=== PATIENT | female | born 1970 | race Caucasian/White ===

== ENCOUNTER 2018-01-02 12:56 | Outpatient (RCR) | payer MEDICAID, SELFPAY | END 2018-01-03 23:59 | LOC: NS 12:56 | PROVIDERS: Family Provider Internal Medicine; PCP Internal Medicine; Visit Provider Nurse Practitioner Family | DX: E66.01 Morbid (severe) obesity due to excess calories (principal); Z68.43 Body mass index [BMI] 50.0-59.9, adult; Z71.3 Dietary counseling and surveillance | CPT/HCPCS: 97802 ==

== ENCOUNTER 2018-01-16 14:00 | Outpatient (RCR) | payer MEDICAID, SELFPAY | END 2018-02-03 23:59 | LOC: NS 14:00 | PROVIDERS: Family Provider Internal Medicine; PCP Internal Medicine; Visit Provider Nurse Practitioner Family | DX: E66.01 Morbid (severe) obesity due to excess calories (principal); Z68.43 Body mass index [BMI] 50.0-59.9, adult; Z71.3 Dietary counseling and surveillance | CPT/HCPCS: 97803 ==

== ENCOUNTER 2018-04-03 14:02 | Outpatient (RCR) | payer MEDICAID, SELFPAY | END 2018-04-05 23:59 | LOC: NS 14:02 | PROVIDERS: Family Provider Internal Medicine; PCP Internal Medicine; Visit Provider Nurse Practitioner Family | DX: E66.01 Morbid (severe) obesity due to excess calories (principal); Z68.43 Body mass index [BMI] 50.0-59.9, adult; Z71.3 Dietary counseling and surveillance | CPT/HCPCS: 97803 ==

== ENCOUNTER 2018-04-23 14:51 | Outpatient (RCR) | payer MEDICAID, SELFPAY | END 2018-05-05 23:59 | LOC: NS 14:51 | PROVIDERS: Family Provider Internal Medicine; PCP Internal Medicine; Visit Provider Nurse Practitioner Family | DX: E66.01 Morbid (severe) obesity due to excess calories (principal); Z68.43 Body mass index [BMI] 50.0-59.9, adult; Z71.3 Dietary counseling and surveillance | CPT/HCPCS: 97803 ==

== ENCOUNTER 2018-05-07 14:05 | Outpatient (RCR) | payer MEDICAID, SELFPAY | END 2018-05-07 23:59 | LOC: NS 14:05 | PROVIDERS: Family Provider Internal Medicine; PCP Internal Medicine; Visit Provider Nurse Practitioner Family | DX: E66.01 Morbid (severe) obesity due to excess calories (principal); Z68.43 Body mass index [BMI] 50.0-59.9, adult; Z71.3 Dietary counseling and surveillance | CPT/HCPCS: 97803 ==

== ENCOUNTER → 2018-05-08 09:33 | Outpatient (CLI) | payer MEDICAID, SELFPAY ==
--- NOTE | 2018-05-08 09:34 | US_ITS ---
STUDY: ULTRASOUND BREAST - RIGHT REASON FOR EXAM: Female, 47 years old. Palpable lump in the right breast. TECHNIQUE: Axial and longitudinal images of the RIGHT breast were performed with a high resolution ultrasound transducer. COMPARISON: None. FINDINGS: RIGHT Breast: The upper medial aspect of the right breast was examined by ultrasound. There is a 1.5 cm x 1.3 cm x 0.6 cm well-defined slightly echogenic nodule most likely representing a lipoma. Adjacent to this, there is also evidence of a 1.6 cm x 1.6 cm x 1.7 cm slightly echogenic nodule. This most likely represents a lipoma. US/Breast Limited Unilateral IMPRESSION: The palpable abnormality corresponds to 2 slightly echogenic nodules most likely representing lipomas. ASSESSMENT CATEGORY: BIRADS Category 2: Benign. A letter regarding these results will be sent to the patient by the facility within 30 days. Electronically Signed: Amarjit Ko MD at 12:43 EDT Tel [phone], Service support ,
== END ==
PROVIDERS: Family Provider Internal Medicine; PCP Internal Medicine; Visit Provider Nurse Practitioner Family
DX: N63.10 Unspecified lump in the right breast, unspecified quadrant (principal)
CPT/HCPCS: 76642

== ENCOUNTER → 2018-05-24 15:08 | Outpatient (CLI) | payer MEDICAID, SELFPAY ==
[2018-05-24 15:49] LABS: Hematocrit 43.3 % (37-47); Hemoglobin 14.6 g/dl (12.0-15.0); Mean Corp Hgb Conc 33.7 g/gl (32-36); Mean Corpuscular Hgb 29.2 pg (27.0-32.0); Mean Corpuscular Volume 86.6 fL (81-99); Mean Platelet Vol. 10.5 fl (6.2-12.0); Platelet Count 290 K/mm3 (150-450); RBC Distribution Width CV 13.7 % (11.6-14.6); RBC Distribution Width SD 42.2 fl (35.1-43.9); Scan Indicated on CBC? Y/N NO; White Blood Count 8.9 K/mm3 (4.4-11.0)
[2018-05-24 16:18] LABS: ALB/GLOB Ratio 0.9 RATIO (0.9-2.4); AST(SGOT) 13 U/L (15-37); Alanine Aminotransfer ALT/SGPT 27 U/L (13-56); Albumin, Serum 3.4 g/dL (3.2-5.0); Alkaline Phosphatase 129 U/L (45-117); Anion Gap 7 (5-15); BUN 19 mg/dL (7-18); BUN/Creat Ratio 19.9 RATIO (10-20); Chloride 108 mmol/L (98-107); Creatinine, Serum 0.95 mg/dL (0.55-1.02); EST Glomerular Filtration Rate 67 mL/min (>60); Est Glom Filt Rate - Afr Amer 80 mL/min (>60); Globulin 3.7 g/dL (2.2-4.2); Glucose 94 mg/dL (74-106); Potassium 4.1 mmol/L (3.5-5.1); Protein, Total 7.1 g/dL (6.4-8.2); Sodium Level 140 mmol/L (136-145)
== END ==
PROVIDERS: Family Provider Internal Medicine; PCP Internal Medicine; Visit Provider Nurse Practitioner Family
DX: R10.2 Pelvic and perineal pain (principal)
CPT/HCPCS: 36415; 80053; 85027

== ENCOUNTER → 2018-05-30 12:16 | Outpatient (CLI) | payer MEDICAID, SELFPAY ==
--- NOTE | 2018-05-30 12:17 | US_ITS ---
STUDY: ULTRASOUND OF THE FEMALE PELVIS - COMPLETE REASON FOR EXAM: Female, 47 years old. Left lower quadrant pain LMP: TECHNIQUE: Transabdominal TECHNICAL QUALITY: Adequate. COMPARISON: None. FINDINGS: Uterus and ovaries have been previously removed. There is no demonstrated mass or fluid collection within the pelvis. Bladder is sonographically normal US/Pelvic (Non ) IMPRESSION: No suspicious sonographic findings, previous total hysterectomy. Electronically Signed: Keshawn Flaherty MD at 15:25 EDT , Service support ,
== END ==
PROVIDERS: Family Provider Internal Medicine; PCP Internal Medicine; Visit Provider Nurse Practitioner Family
DX: R10.2 Pelvic and perineal pain (principal)
CPT/HCPCS: 76856; 81001

== ENCOUNTER → 2018-05-30 12:49 | Outpatient (CLI) | payer MEDICAID, SELFPAY ==
[2018-05-30 12:54] LABS: Red Blood Cells-Urine 0 SEEN /hpf (0-5)
[2018-05-30 13:47] LABS: Color, Urine Yellow (Yellow); Glucose, Dipstick Normal (Normal); Ketone-Dipstick Negative (Negative); Leukocyte Esterase-Dipstick 500 /ul (Negative); Nitrite-Dipstick Negative (Negative); Occult Blood-Urine Negative /ul (Negative); Protein-Dipstick Negative (Negative); Specific Gravity, Urine 1.015 (1.002-1.030); Urine Bilirubin Dipstick Negative (Negative); Urine Clarity Sl. Cloudy (Clear); Urine Urobilinogen Normal (Normal)
[2018-05-30 14:03] LABS: Bacteria 1+ /hpf (None Seen); Mucous, Urine 1+ /hpf (<or=2+); Squamous Epithelial Cells - UA 0-5 SEEN /hpf (5-10); White Blood Cells 0-5 SEEN /hpf (0-5)
== END ==
PROVIDERS: Family Provider Internal Medicine; PCP Internal Medicine; Visit Provider Nurse Practitioner Family
DX: R10.2 Pelvic and perineal pain (principal)
CPT/HCPCS: 81001

== ENCOUNTER 2018-06-12 08:15 | Outpatient (RCR) | payer MEDICAID, SELFPAY | END 2018-07-06 23:59 | LOC: NS 08:15 | PROVIDERS: Family Provider Internal Medicine; PCP Internal Medicine; Visit Provider Nurse Practitioner Family | DX: E66.01 Morbid (severe) obesity due to excess calories (principal); Z68.43 Body mass index [BMI] 50.0-59.9, adult; Z71.3 Dietary counseling and surveillance ==

== ENCOUNTER → 2018-06-18 17:02 | Outpatient (CLI) | payer MEDICAID, SELFPAY | PROVIDERS: Family Provider Internal Medicine; PCP Internal Medicine; Visit Provider Physician Assistant | DX: M25.561 Pain in right knee (principal) | CPT/HCPCS: 73562 ==

== ENCOUNTER 2018-08-13 11:00 | Outpatient (RCR) | payer MEDICAID, SELFPAY ==
--- NOTE | 2018-07-25 10:07 | HP.PTEVAL_ITS ---
Patient's Visit Information WILLEM DE LA TORRE is a 47 year old F referred to Physical Therapy by [facility] with a diagnosis of R knee OA with possible meniscal injury. Date of Evaluation: 07/25/18 Physical Therapist: Kelvin Carnes PT, - Visit Plan Frequency: 2-3x /Week Duration: 4 Weeks Plan: R knee stretching and strengthening, balance and proprio, core stab ex's, nustep, and HEP - Subjective Subjective: Pt reports she has had a chronic Hx of R knee pain. Pt reports she used to sublux her patella starting at the age of 11. Pt reports she had that surgically repaired in her 20's. Pt notes recently she stepped up on to a curb and felt her knee tweek. Pt notes her pain is now constant, but the intesnsity of her pain varies. Pt also notes her R knee is weaker now than it was before the injury. R knee is not popping, locking up, or giving out on her. Pt did have xrays which revealed OA in R knee. No sleep diff secondary to pain. Pt is currently a student at [employer]. No T or N in R knee at this time. Pain is mostly in the medial compartment of her R knee. 3/10 at rest, 7/10 at worst ( walking at school) - Pain R knee Pain Intensity (Out of 10): 3 Pain Intensity Range: 8 - Objective Neuro: B LE sensation is WNL to light touch. B achilles reflex= 1/3. Girth at joint line: B knees 56.5 cm. ROM: L knee 0-15-120; R knee 0-25-95. MMT: L LE is grossly 4/5. R knee is 3-/5 and painful with testing. Gait: Pt was able to ambulate approximately 120 feet until being fatigued and SOB. Special testing: pos major's test. - Goals Goal 1:: Decrease R knee pain x 50% to aid with ambulation Goal Time Frame: 4-6 Weeks Goal 2:: Increase R knee strength x 1 grade to aid with stairs Goal Time Frame: 4-6 Weeks Goal 3:: Increase R knee ROM x 30 degrees to aid with restoring a more normal gait pattern Goal Time Frame: 4-6 Weeks Goal 4:: I with HEP Goal Time Frame: 4-6 Weeks - Rehabilitation Potential Physical Therapy Diagnosis: R knee pain, weakness, and limited ROM secondary to R knee OA and possible menical injury Rehabilitation Potential: Good - Anticipated Interventions Patient/Client Instruction: Educate patient on: Condition, Plan of Care For the Purpose of:: To improve self management Therapeutic Exercise to Include: Strength training, Endurance training, Balance training, Active ROM, Dynamic Lumbar Stabilization For the Purpose of:: To decrease pain, To increase ROM, To improve muscle performance and motor function Cryotherapy (ice pack, ice massage): Yes For the Purpose of:: To decrease pain Thank you for the opportunity to evaluate your patient. For Medicare and Medicare HMO plans, please review the plan of care and approve it. It will need to be FAXED BACK to us at [phone] for Medicare purposes. Please let me know if there are questions or concerns regarding this plan of care. Physician Signature: Date:
--- NOTE | 2018-09-20 18:07 | HP.PTDCNRP_ITS ---
HP - Discharge Summary (1) - Patient Information WILLEM DE LA TORRE was seen in my office for initial evaluation on 07/25/18. The following Plan of Care was established for this patient: Initial Frequency: 2-3x /Week Initial Duration: 4 Weeks - Anticipated Interventions Patient/Client Instruction: Educate patient on: Condition, Plan of Care For the Purpose of:: To improve self management Therapeutic Exercise to Include: Strength training, Endurance training, Balance training, Active ROM, Dynamic Lumbar Stabilization For the Purpose of:: To decrease pain, To increase ROM, To improve muscle performance and motor function Cryotherapy (ice pack, ice massage): Yes For the Purpose of:: To decrease pain This patient was last seen in our office . Pertinent comments regarding their Physical therapy will appear below: Pt was treated for 6 PT visits through the date of 08/13/18 for her R knee pain. Pt cancelled her last visit and has not returned through today. Pt is therefore discontinued at this time. At this point I will be discontinuing this patient from physical therapy. I w ould be happy to see this patient again in the future if found appropriate by the physician. Thank you! Kelvin Carnes, PT,
== END 2018-08-13 19:00 | disposition home or self-care (01) ==
LOC: PT 11:00
PROVIDERS: Family Provider Internal Medicine; PCP Internal Medicine; Visit Provider Physician Assistant
DX: M17.11 Unilateral primary osteoarthritis, right knee (principal)
CPT/HCPCS: 97110; 97162; 97530

== ENCOUNTER → 2018-09-03 10:01 | Outpatient (CLI) | payer MEDICAID, SELFPAY ==
[2018-09-03 10:09] LABS: Mucous, Urine 0 SEEN /hpf (<or=2+); Red Blood Cells-Urine 0 SEEN /hpf (0-5); Squamous Epithelial Cells - UA 0 SEEN /hpf (5-10)
[2018-09-03 10:14] LABS: Color, Urine Yellow (Yellow); Glucose, Dipstick Normal (Normal); Ketone-Dipstick Negative (Negative); Leukocyte Esterase-Dipstick 500 /ul (Negative); Nitrite-Dipstick Negative (Negative); Occult Blood-Urine Negative /ul (Negative); Protein-Dipstick Negative (Negative); Specific Gravity, Urine 1.015 (1.002-1.030); Urine Bilirubin Dipstick Negative (Negative); Urine Clarity Sl. Cloudy (Clear); Urine Urobilinogen Normal (Normal)
[2018-09-03 10:20] LABS: Bacteria 1+ /hpf (None Seen); Calcium Oxalate Crystals Ur 2+ /hpf (<or=2+); White Blood Cells 0-5 SEEN /hpf (0-5)
== END ==
PROVIDERS: Family Provider Internal Medicine; PCP Internal Medicine; Referring Provider Internal Medicine; Visit Provider Internal Medicine
DX: R30.0 Dysuria (principal)
CPT/HCPCS: 81001

== ENCOUNTER → 2018-10-12 08:33 | Outpatient (CLI) | payer MEDICAID, SELFPAY ==
--- NOTE | 2018-10-12 08:34 | BI_ITS ---
MAMMOGRAPHY - BILATERAL SCREENING REASON FOR EXAM: Female, 48 years old. Routine annual screening examination. PERTINENT HISTORY: Sister with breast cancer. On with breast cancer. TECHNIQUE: Digital bilateral breast savannah (3D mammographic acquisition) in the CC and MLO projections. 2-D mediolateral oblique (MLO) and craniocaudad (CC) views of both breasts were obtained. CAD: Full Field Digital Mammography with Computer Added Detection was performed. COMPARISON: Comparison is made with prior study dated September 26, 2017. FINDINGS: Breast Composition: There are scattered areas of fibroglandular density. There are no dominant masses or suspicious calcifications. No other significant abnormalities are identified. There has been no significant change since the prior study. BI/SCREENING MAMM (CAD), BILAT IMPRESSION: Stable bilateral screening mammogram. Yearly follow-up mammogram recommended. (A) ASSESSMENT CATEGORY: BIRADS Category 1: Negative. A letter regarding these results will be sent to the patient by the facility within 30 days. Approximately 10% of breast cancers are not detected by mammography. A normal mammogram should not delay biopsy of a clinically suspicious abnormality. [id number] Electronically Signed: Amarjit Ko MD at 10:13 EST Tel [phone], Service support ,
== END ==
PROVIDERS: Family Provider Internal Medicine; PCP Internal Medicine; Referring Provider Internal Medicine; Visit Provider Internal Medicine
DX: Z12.31 Encounter for screening mammogram for malignant neoplasm of breast (principal)
CPT/HCPCS: 77063; 77067

== ENCOUNTER → 2019-06-24 10:23 | Outpatient (CLI) | payer MEDICAID, SELFPAY ==
[2019-06-24 09:58] VITALS: BMI 54.3
--- NOTE | 2019-06-24 11:22 | EKG12_ITS ---
Test Reason : BASELINE Blood Pressure : / mmHG Vent. Rate : 103 BPM Atrial Rate : 103 BPM P-R Int : 148 ms QRS Dur : 082 ms QT Int : 334 ms P-R-T Axes : 044 -01 057 degrees QTc Int : 437 ms Sinus tachycardia Inferior infarct (cited on or before 29-JUL-2010), age undetermined Abnormal ECG Confirmed by JENNIFER GONZALEZ, PAVEL ([id number]), makeup editor YULISSA WISEMAN ([id number]) on 06/25/2019 1:15:53 PM Referred By: Debbie Mccullough Confirmed By:PAVEL RODRIGUEZ MD
[2019-06-24 12:19] LABS: Absolute Lymphocyte Count 2.05 X10^3/uL (0.83-4.51); Absolute Neutrophil Count 4.6 X10^3/uL (2.0-7.7); Basophil# 0.02 X10^3/uL; Basophil% 0.3 % (0-1); Eosinophil# 0.21 X10^3/uL; Eosinophils% 2.9 % (0-5); Hematocrit 45.1 % (37-47); Hemoglobin 14.6 g/dL (12.0-15.0); Lymphocyte # 2.05 X10^3/ul (4.0); Lymphocyte % 28.2 % (19-41); Mean Corp Hgb Conc 32.4 g/dL (32-36); Mean Corpuscular Hgb 28.4 pg (27.0-32.0); Mean Corpuscular Volume 87.7 fL (81-99); Mean Platelet Vol. 10.2 fl (6.2-12.0); Monocyte# 0.38 X10^3/uL; Monocyte% 5.2 % (0-10); NRBC Flagged by Analyzer 0 % (0-5); Neutrophil % 63.1 % (47-70); Platelet Count 295 K/mm3 (150-450); RBC Distribution Width CV 13.6 % (11.6-14.6); RBC Distribution Width SD 43.8 fl (35.1-43.9); Red Blood Count 5.14 M/mm3 (4.2-5.4); White Blood Count 7.3 K/mm3 (4.4-11.0)
[2019-06-24 12:32] LABS: ALB/GLOB Ratio 0.9 RATIO (0.9-2.4); AST(SGOT) 12 U/L (15-37); Alanine Aminotransfer ALT/SGPT 34 U/L (13-56); Albumin, Serum 3.3 g/dL (3.2-5.0); Alkaline Phosphatase 143 U/L (45-117); Anion Gap 5 (5-15); BUN 14 mg/dL (7-18); BUN/Creat Ratio 14.6 RATIO (10-20); Chloride 109 mmol/L (98-107); Cholesterol 216 mg/dL (200); Creatinine, Serum 0.96 mg/dL (0.55-1.02); EST Glomerular Filtration Rate 66 mL/min (>60); Est Glom Filt Rate - Afr Amer 80 mL/min (>60); Globulin 3.5 g/dL (2.2-4.2); Glucose 100 mg/dL (74-106); High Density Lipoprotein 58 mg/dL; Potassium 4.4 mmol/L (3.5-5.1); Protein, Total 6.8 g/dL (6.4-8.2); Sodium Level 142 mmol/L (136-145); Triglycerides 191 mg/dL; Very Low Density Lipoprotein 38 mg/dL (5-40)
== END ==
PROVIDERS: Family Provider Internal Medicine; PCP Internal Medicine; Referring Provider Internal Medicine; Visit Provider Internal Medicine
DX: I10 Essential (primary) hypertension (principal); K21.9 Gastro-esophageal reflux disease without esophagitis
CPT/HCPCS: 36415; 80053; 80061; 85025; 93005

== ENCOUNTER → 2019-07-20 11:06 | Outpatient (CLI) | payer MEDICAID, SELFPAY ==
[2019-07-19 10:07] VITALS: BMI 53.8
== END ==
PROVIDERS: Family Provider Internal Medicine; PCP Internal Medicine; Referring Provider Nurse Practitioner Family; Visit Provider Nurse Practitioner Family
DX: K62.5 Hemorrhage of anus and rectum (principal)
CPT/HCPCS: 82274

== ENCOUNTER → 2019-07-22 11:14 | Outpatient (CLI) | payer MEDICAID, SELFPAY ==
[2019-07-19 10:07] VITALS: BMI 53.8
== END ==
PROVIDERS: Family Provider Internal Medicine; PCP Internal Medicine; Visit Provider Nurse Practitioner Family
DX: K62.5 Hemorrhage of anus and rectum (principal)
CPT/HCPCS: 82274

== ENCOUNTER → 2019-07-24 09:05 | Outpatient (CLI) | payer MEDICAID, SELFPAY ==
[2019-07-19 10:07] VITALS: BMI 53.8
== END ==
PROVIDERS: Family Provider Internal Medicine; PCP Internal Medicine; Visit Provider Nurse Practitioner Family
DX: K62.5 Hemorrhage of anus and rectum (principal)
CPT/HCPCS: 82274

== ENCOUNTER 2019-08-19 08:41 | Day surgery (SDC) | payer MEDICAID, SELFPAY ==
[2019-08-09 09:44] VITALS: BMI 53.8
--- NOTE | 2019-08-10 09:21 | HP_ITS ---
Intake Vital Signs 08/09/19 Body Mass Index (BMI) 53.8 08/09/19 Height 5 ft 8.5 in 08/09/19 Weight: 362 lb 08/09/19 Body Mass Index (BMI) 54.2 08/09/19 Blood Pressure 139/79 H 08/09/19 Blood Pressure Location Rt brachial 08/09/19 Blood Pressure Position Sitting 08/09/19 Respiratory Rate 18 08/09/19 Pulse Rate 86 08/09/19 Pulse Source Monitor 08/09/19 Temperature 98.5 F 08/09/19 Temperature Source Oral 08/09/19 Pulse Ox 96 08/09/19 Oxygen Delivery Method room air Intake Visit Reasons: anal leakage, +FOBT x3 Chief Complaint: 1 Mo f/u visit - bp Oil Well Pumper Required: No Is patient in pain?: No Allergies morphine Adverse Reaction (Verified 08/09/19 09:44) Nausea anesthsia Allergy (Severe, Uncoded 08/09/19 09:44) Unknown Medications Bariatric Walker MISCELLANEOUS 10/12/17 [History Confirmed 08/09/19] disability placard #1 ea 10/17/17 [Rx Confirmed 08/09/19] albuterol sulfate HFA 90 mcg/actuation aerosol inhaler 1 puff INHALATION Q6H PRN #8 g 12/11/18 [Rx Confirmed 08/09/19] bupropion HCl XL 300 mg 24 hr tablet, extended release 300 mg PO QAM #90 tab 12/26/18 [Rx Confirmed 08/09/19] cholecalciferol (vitamin D3) 1,000 unit capsule 2,000 unit PO ONCE #180 cap 01/25/19 [Rx Confirmed 08/09/19] 4 point cane #1 ea 04/05/19 [Rx Confirmed 08/09/19] colestipol 1 gram tablet 1 g PO BID #180 tab 05/10/19 [Rx Confirmed 08/09/19] ibuprofen 600 mg tablet See Rx Instructions .ROUTE .COMPLEX #90 tablet 06/27/19 [Rx Confirmed 08/09/19] fluticasone propionate 50 mcg/actuation nasal spray,suspension See Rx Instructions .ROUTE .COMPLEX #16 milliliter 07/02/19 [Rx Confirmed 08/09/19] amlodipine 10 mg tablet 10 mg PO DAILY #90 tab 07/19/19 [Rx Confirmed 08/09/19] hydrocortisone acetate 25 mg rectal suppository 25 mg RC BID PRN #24 ea 07/19/19 [Rx Confirmed 08/09/19] sucralfate 1 gram tablet 1 g PO BID #60 tab 08/08/19 [Rx Confirmed 08/09/19] PFSH Medical History Seasonal allergies (Chronic) Arthritis (Chronic) Asthma (Chronic) Chronic back pain (Chronic) IBS (irritable bowel syndrome) (Chronic) Pneumonia (Resolved) Shortness of breath (Chronic) Morbid obesity (Chronic) GERD (gastroesophageal reflux disease) (Chronic) Hx of abnormal mammogram (Acute) H/O: hysterectomy (Acute) Obesity, Class II, BMI 35-39.9 (Chronic) Osteoarthritis (Chronic) Abnormal results of thyroid function studies (Chronic) Abnormal glucose (Chronic) Sleep apnea (Chronic) Surgical History knee surgery (Acute) foot surgery (Acute) gall bladder removed (Acute) Normal colonoscopy (Acute) Deviated septum (Acute) Hx of knee surgery (Acute) Family History Mother Hypertension Colon cancer Father Thyroid disorder Myocardial infarction, Onset Age: 67 CVA (cerebral vascular accident) Sister Breast cancer Cancer ovarian CA Sister Cancer cervical CA Grandfather Colon cancer Social History (Updated 08/10/19 @ 09:22 by Vincent Maki MD) Smoking Status: Former smoker quit date: 11/06/04 second hand exposure: No alcohol intake: never substance use type: does not use caffeine: No what type of physical activity do you participate in: none HPI HPI HPI: WILLEM DE LA TORRE, is a 48 F who presents to the office today for HPI HPI Surgical H&P: Yes HPI: WILLEM DE LA TORRE, is a 48 F who presents to the office today for Hemoccult positive stools. Patient last had a colonoscopy at the [facility] by Dr. Yen this was completed 07/02/2014. Patient states that she also had some episodes of anal leakage which is stopped. She states she has a grandfather with colon cancer is but her primary degree relatives had no colon cancers. ROS General General: Yes fatigue; no weight change, appetite, colon cancer, breast cancer or weakness HEENT HEENT: No difficulty swallowing, eye injury, eye surgery, swollen glands or hoarseness Endo Endocrine: No thyroid disease, diabetes mellitus, thyroid cancer, Hair loss, heat intolerance or cold intolerance Skin Skin: No rash or changing moles Musc Musculoskeletal: Yes back problems, arthritis and rheumatoid arthritis; no gout or joint pain Cardio Cardiovascular: Yes high blood pressure; no murmur, pacemaker, heart disease, atrial fibrillation, heart attack, heart stent, palpitations, shortness of breat with exertion or chest pain Psych Psychiatric: Yes depression and anxiety; no hearing voices Resp Respiratory: Yes shortness of breath, Yes sleep apnea, No cough, No COPD, Yes asthma, No emphysema, No wheezing Gastro Gastrointestinal: No abdominal pain, No nausea or vomiting, No diarrhea, Yes constipation, Yes blood in stool, Yes acid reflux, Yes hemorrhoids, No ulcers, No gallbladder problem, No black,tarry stools Shahzad Hematologic: No blood thinners, No blood disorders, No bleeding, No anemia, No blood clots Neuro Neurologic: No system reviewed and no additional complaints, except as docu, No as per HPI, No abnormal walking, No abnormal hearing, No abnormal movements, No abnormal speech, No behavioral changes, No burning sensations, No confusion, No seizure-like activity, No unsteadiness, No dizziness, No localized weakness, No frequent falls, No headache(s), No lack of coordination, No loss of vision, No memory loss, No numbness, No other visual disturbances, No radiating pain, No restless legs, No sensory deficit, No fainting, No tingling, No tremor(s), No weakness, No other Exam Const General: no acute distress, well developed, well hydrated Orientation: oriented to person, oriented to place, oriented to time [facility] Head: normocephalic, atraumatic Ears: external ears normal Mouth: moist mucous membranes Eyes Sclera: sclerae normal Pupils: normal by confrontation Neck Neck: no lymphadenopathy noted Neck mass: No Thyroid: thyroid normal, symmetrical Chest Chest palpation & inspection: normal inspection of the chest Resp Effort & Inspection: normal respiratory effort Auscultation: clear to auscultation bilaterally Percussion: percussion normal Cardio Rate: regular rate Rhythm: regular rhythm Heart Sounds: no murmurs GI Inspection: obesity Palpation: soft, no hepatosplenomegaly, no masses, nontender Rectal Exam: other Other: Rectal exam deferred. Extrem General: normal to inspection, no clubbing, cyanosis or edema Assessment & Plan Problems 1. Heme positive stool R19.5 Plan I have discussed the above with the patient. I have offered the patient colonoscopy for evaluation. I have explained the risks/benefits of the procedure and described the procedure. I have discussed the risks with the patient, including but not limited to: infection, bleeding, perforation of the GI tract requiring emergency surgery, inability to complete the procedure, injury to any internal organs, complications of anesthesia, etc. - the patient understands and agrees to proceed. I have answered all the patient's questions to the patient's satisfaction and the patient has no further questions. The patient has been given instructions for the colon cleansing preparation. Coding Level of Care Code Off vis,new,level 3 Diagnoses Heme positive stool R19.5 08/10/19 0922 <Electronically signed by Vincent perdomo MD> Date _ Vincent Maki MD I have re-examined the patient. There are no clinical changes since date of exam.
[2019-08-19 09:17] VITALS: BP 118/81; PULSE 91; RESP 16; TEMP 36.7; O2SAT 100; BMI 53.2
[2019-08-19] MEDS: Lactated Ringers 1,000 ML 100 ML IV (09:34)
[2019-08-19 10:30] VITALS: BP 102/58; PULSE 81; RESP 16; TEMP 36.3; O2SAT 93
--- NOTE | 2019-08-19 10:33 | OP.ENDO_ITS ---
08/19/2019 Debbie Mccullough MD [address] [place] [address] [place] [address] Re : Colonoscopy procedure for Libia Newell Dear Dr. Mccullough This procedure was performed on Monday, August 19, 2019. My impressions and recommendations are as follows: Impressions : - Non-bleeding internal hemorrhoids. - The examination was otherwise normal. - No specimens collected. Recommendations : - Discharge patient to home. - Resume previous diet. - Continue present medications. - Repeat colonoscopy in 10 years for screening purposes. - Return to primary care physician (date not yet determined). - Use hydrocortisone suppository 25 mg 1 per rectum once a day PRN. If the patient notices any rectal bleeding and I think it is best just to treat her with suppositories which can be made at [facility]. Otherwise I do not think there is any treatment that is needed here at this time. My findings are described in the full procedure note, which is enclosed. If I can be of further assistance, please feel free to contact me at Doctor phone number(s): , Fax: [phone], Work: . Sincerely, MD Vincent Miller MD 08/19/2019 10:32:36 AM This report has been signed electronically.
[2019-08-19 10:35] VITALS: BP 102/58; BP 112/66; PULSE 80; RESP 16; O2SAT 95
[2019-08-19 10:40] VITALS: BP 102/58; BP 107/62; PULSE 78; RESP 16; O2SAT 94
[2019-08-19 10:46] VITALS: BP 102/58; BP 115/53; PULSE 78; RESP 16; TEMP 36.4; O2SAT 93
[2019-08-19 10:50] VITALS: BP 102/58
== END 2019-08-19 11:11 | disposition home or self-care (01) ==
LOC: EN 08:42 → AC 08:43
PROVIDERS: Family Provider Internal Medicine; PCP Internal Medicine; Referring Provider Internal Medicine; Visit Provider Surgery
PROC: 0DJD8ZZ Inspection of Lower Intestinal Tract, Via Natural or Artificial Opening Endoscopic (ICD-10-PCS; CPT 45378; principal; 2019-08-19 09:55)
DX: R19.5 Other fecal abnormalities (principal); K64.8 Other hemorrhoids; K58.9 Irritable bowel syndrome, unspecified; M06.9 Rheumatoid arthritis, unspecified; E78.00 Pure hypercholesterolemia, unspecified; J45.909 Unspecified asthma, uncomplicated; M54.9 Dorsalgia, unspecified; G89.29 Other chronic pain; K21.9 Gastro-esophageal reflux disease without esophagitis; G47.30 Sleep apnea, unspecified; E66.01 Morbid (severe) obesity due to excess calories; Z68.43 Body mass index [BMI] 50.0-59.9, adult; Z87.891 Personal history of nicotine dependence; Z80.0 Family history of malignant neoplasm of digestive organs
CPT/HCPCS: 45378; J7120; J1610; J2405

== ENCOUNTER → 2019-08-28 18:02 | Outpatient (CLI) | payer MEDICAID, SELFPAY ==
[2019-08-19 09:17] VITALS: BMI 53.2
[2019-08-28 19:50] LABS: M R Staph aureus DNA By PCR Negative (Negative); Probe Check PASS; Specimen Processing Control PASS; Staph aureus DNA By PCR NEGATIVE (Negative)
== END ==
PROVIDERS: Family Provider Internal Medicine; PCP Internal Medicine; Referring Provider Podiatrist; Visit Provider Podiatrist
DX: L60.0 Ingrowing nail (principal)
CPT/HCPCS: 87070; 87075; 87077; 87186; 87205; 87640

== ENCOUNTER → 2019-10-18 11:08 | Outpatient (CLI) | payer MEDICAID, SELFPAY ==
[2019-10-18 10:43] VITALS: BMI 51.8
[2019-10-18 11:10] LABS: Mucous, Urine 0 SEEN /hpf (<or=2+)
[2019-10-18 12:37] LABS: Color, Urine Yellow (Yellow); Glucose, Dipstick Normal (Normal); Ketone-Dipstick Negative (Negative); Leukocyte Esterase-Dipstick 500 /ul (Negative); Nitrite-Dipstick Positive (Negative); Occult Blood-Urine 25 /ul (Negative); Protein-Dipstick Negative (Negative); Specific Gravity, Urine 1.015 (1.002-1.030); Urine Bilirubin Dipstick Negative (Negative); Urine Clarity Sl. Cloudy (Clear); Urine Urobilinogen Normal (Normal)
[2019-10-18 12:46] LABS: Bacteria 2+ /hpf (None Seen); Red Blood Cells-Urine 0-5 SEEN /hpf (0-5); Squamous Epithelial Cells - UA 0-5 SEEN /hpf (5-10); White Blood Cells 25-50 SEEN /hpf (0-5)
== END ==
PROVIDERS: Family Provider Internal Medicine; PCP Internal Medicine; Visit Provider Nurse Practitioner Family
DX: R30.0 Dysuria (principal)
CPT/HCPCS: 81001; 87086; 87088; 87186

== ENCOUNTER → 2019-10-28 12:43 | Outpatient (CLI) | payer MEDICAID, SELFPAY ==
[2019-10-18 10:43] VITALS: BMI 51.8
--- NOTE | 2019-10-28 13:04 | RAD_ITS ---
STUDY: X-RAY CHEST REASON FOR EXAM: Female, 49 years old. SOB, OBESE PATIENT HAVING BARIATRIC SURGERY SOON TECHNIQUE: PA and lateral views of the chest. COMPARISON: 07/29/2010. FINDINGS: The lungs are clear and expanded. There is no demonstrated pleural abnormality. Normal size heart. Normal mediastinum and melvina. Normal visualized pulmonary arteries. Normal visualized aortic arch and descending thoracic aorta. Normal visualized thoracic spine. Normal visualized ribs, clavicles, and shoulders. There is no demonstrated abnormality of the visualized soft tissue structures of the upper abdomen. RAD/Chest PA and Lateral IMPRESSION: Normal x-ray examination of the chest. Electronically Signed: Jessica Zaragoza MD at 2:29 EST , Service support ,
[2019-10-28 13:26] LABS: Hemoglobin 15.1 g/dL (12.0-15.0); Mean Corp Hgb Conc 32.8 g/dL (32-36); Mean Corpuscular Hgb 28.7 pg (27.0-32.0); Mean Corpuscular Volume 87.3 fL (81-99); Mean Platelet Vol. 10.1 fl (6.2-12.0); Platelet Count 304 K/mm3 (150-450); RBC Distribution Width SD 41.2 fl (35.1-43.9); Red Blood Count 5.27 M/mm3 (4.2-5.4); White Blood Count 7.9 K/mm3 (4.4-11.0)
[2019-10-28 13:41] LABS: PTHIN 78.2 pg/mL (18.4-80.1)
[2019-10-28 13:42] LABS: Vitamin B12 1090 pg/mL (211-911); Vitamin D,25 Hydroxy 29.2 ng/mL (29.95-100.01)
[2019-10-28 13:46] LABS: AST(SGOT) 11 U/L (15-37); Alanine Aminotransfer ALT/SGPT 26 U/L (13-56); Albumin, Serum 3.6 g/dL (3.2-5.0); Alkaline Phosphatase 149 U/L (45-117); Anion Gap 5 (5-15); BUN 20 mg/dL (7-18); BUN/Creat Ratio 22.1 RATIO (10-20); Calcium,Total 8.8 mg/dL (8.5-10.1); Chloride 106 mmol/L (98-107); Creatinine, Serum 0.91 mg/dL (0.55-1.02); EST Glomerular Filtration Rate 70 mL/min (>60); Est Glom Filt Rate - Afr Amer 85 mL/min (>60); Ferritin 122 ng/mL (8-252); Globulin 3.6 g/dL (2.2-4.2); Glucose 99 mg/dL (74-106); Iron 65 ug/dL (50-170); Iron Binding Capacity,Total 341 ug/dL (250-450); PERCENT IRON SATURATION 19.1 % (15.0-55.0); Potassium 4.2 mmol/L (3.5-5.1); Protein, Total 7.2 g/dL (6.4-8.2); Sodium Level 139 mmol/L (136-145)
[2019-10-31 09:07] LABS: Folate, Hemolysate Test > 620.0 ng/mL (Not Estab.); Folate, RBC (Hct) Test 44.7 % (34.0-46.6); Folates, RBC Test > 1387 ng/mL (>498)
[2019-10-31 11:36] LABS: Vitamin B1, Thiamine 166.7 nmol/L (66.5-200.0)
== END ==
PROVIDERS: Family Provider Internal Medicine; PCP Internal Medicine
DX: Z01.812 Encounter for preprocedural laboratory examination (principal); E66.01 Morbid (severe) obesity due to excess calories; Z68.43 Body mass index [BMI] 50.0-59.9, adult
CPT/HCPCS: 36415; 71046; 80053; 82306; 82607; 82728; 82746; 82747; 83540; 83550; 83970; 84425; 85014; 85027

== ENCOUNTER → 2019-12-31 | Outpatient (CLI) | payer MEDICAID, SELFPAY ==
[2019-12-31 13:13] VITALS: BMI 51.8
[2019-12-31 14:50] LABS: Mucous, Urine 0 SEEN /hpf (<or=2+); Red Blood Cells-Urine 0 SEEN /hpf (0-5)
[2019-12-31 15:07] LABS: Color, Urine Yellow (Yellow); Glucose, Dipstick Normal (Normal); Ketone-Dipstick Negative (Negative); Leukocyte Esterase-Dipstick 500 /ul (Negative); Nitrite-Dipstick Negative (Negative); Occult Blood-Urine 10 /ul (Negative); Protein-Dipstick Negative (Negative); Urine Bilirubin Dipstick Negative (Negative); Urine Clarity Cloudy (Clear); Urine Urobilinogen Normal (Normal); Urine pH 6.5 (5.0 - 8.0)
[2019-12-31 15:20] LABS: Bacteria 1+ /hpf (None Seen); Squamous Epithelial Cells - UA 5-10 SEEN /hpf (5-10); White Blood Cells 5-10 SEEN /hpf (0-5)
== END | disposition home or self-care (01) ==
LOC: LABSPEC 14:38
PROVIDERS: PCP Internal Medicine; Referring Provider Internal Medicine; Visit Provider Internal Medicine
DX: R30.0 Dysuria (principal)
CPT/HCPCS: 81001; 87086; 87088

== ENCOUNTER → 2020-01-15 20:20 | Outpatient (CLI) | payer MEDICAID, SELFPAY ==
[2019-12-20 10:05] VITALS: BMI 51.7
[2019-12-31 13:13] VITALS: BMI 51.8
== END ==
PROVIDERS: PCP Internal Medicine; Referring Provider Nurse Practitioner Family; Visit Provider Nurse Practitioner Family
DX: G47.33 Obstructive sleep apnea (adult) (pediatric) (principal)
CPT/HCPCS: 95811

== ENCOUNTER → 2020-02-13 11:00 | Outpatient (CLI) | payer MEDICAID, SELFPAY ==
[2020-02-05 08:25] VITALS: BMI 51.8
== END ==
PROVIDERS: PCP Family Medicine; Referring Provider Nurse Practitioner Acute Care; Visit Provider Nurse Practitioner Acute Care
DX: G47.33 Obstructive sleep apnea (adult) (pediatric) (principal)

== ENCOUNTER → 2020-02-14 10:30 | Outpatient (CLI) | payer MEDICAID, SELFPAY ==
[2020-02-05 08:25] VITALS: BMI 51.8
== END ==
PROVIDERS: PCP Family Medicine; Referring Provider Nurse Practitioner Family; Visit Provider Nurse Practitioner Family
DX: G47.33 Obstructive sleep apnea (adult) (pediatric) (principal)

== ENCOUNTER → 2020-08-26 17:56 | Outpatient (CLI) | payer MEDICAID, SELFPAY ==
[2020-02-05 08:25] VITALS: BMI 51.8
== END ==
PROVIDERS: PCP Family Medicine; Referring Provider Registered Nurse; Visit Provider Registered Nurse
DX: U07.1 COVID-19 (principal)
CPT/HCPCS: 87635; C9803; U0003

== ENCOUNTER → 2020-10-28 11:05 | Outpatient (CLI) | payer MEDICAID, SELFPAY ==
[2020-02-05 08:25] VITALS: BMI 51.8
[2020-10-28 11:46] LABS: D-Dimer Quantitative (DVT/PE) 0.57 FEU/ug/m (0.27-0.49)
== END ==
PROVIDERS: PCP Family Medicine; Visit Provider Family Medicine
DX: R06.02 Shortness of breath (principal); Z86.19 Personal history of other infectious and parasitic diseases
CPT/HCPCS: 85379

== ENCOUNTER 2020-10-28 13:35 | Emergency (ER) | payer MEDICAID, SELFPAY ==
[2020-02-05 08:25] VITALS: BMI 51.8
[2020-10-28 13:38] VITALS: BP 161/96; PULSE 103; RESP 22; TEMP 36.6; O2SAT 97; BMI 56.6
--- NOTE | 2020-10-28 13:59 | ED.DCSUM_ITS ---
History of Present Illness Chief Complaint: Chest Other Detail of Chief Complaint: Chest tightness Informant: Patient Onset: Weeks Context: Gradual Onset Timing: Waxes and wanes Current Severity: Mild Maximum Severity: Moderate Narrative: Patient presents secondary to chest tightness and shortness of breath. Patient states she has had longstanding shortness of breath. She had Covid in August and states since that time it has been worse. She saw her PCP today about a possible UTI and while there mentioned her chest tightness and increased shortness of breath since August. She had an EKG and chest x-ray performed that were reportedly unremarkable. A D-dimer was done and did return elevated. Patient was sent to the ER for CTA of chest as they were not able to get insurance preauthorization performed in time. - Past Medical History (1) Depression Status: Chronic (2) GERD (gastroesophageal reflux disease) Status: Chronic (3) Hypertension Status: Chronic (4) IBS (irritable bowel syndrome) Status: Chronic Past Medical History - Allergies and Home Meds Allergies/Adverse Reactions: Allergies amoxicillin Allergy (Unknown, Verified 10/28/20 13:38) Counteracted IBS Med morphine Adverse Reaction (Verified 10/28/20 13:38) Nausea anesthsia Allergy (Severe, Uncoded 10/28/20 13:38) Unknown Primary Care Physician: Hosea Ovalles MD [Primary Care Provider] - Prior records reviewed: Yes Lives: With Family Review of Systems General: Denies: Chills, Fever Eyes: Denies: Visual changes - bilaterally ENT: Denies: Bilateral ear pain Cardiovascular: Reports: Chest pain - Chest tightness Respiratory: Reports: Dyspnea. Denies: Cough Gastrointestinal: Denies: Abdominal pain, Nausea, Vomiting, Diarrhea Genitourinary: Denies: Dysuria Musculoskeletal: Denies: Swelling, Extremity Pain Skin: Denies: Rash Neurological: Denies: Headache Hematologic: Denies: Easy bruising, Easy bleeding Allergy: Denies: Uticaria Physical Exam Vital Signs/Narrative: Vital Signs Temp Pulse Resp BP Pulse Ox 10/28/20 13:38 97.9 F 103 H 22 H 161/96 H 97 Inital Vital Signs reviewed: Yes General: Well nourished, Well developed Head: Normocephalic ENT: Moist mucous membranes Neck: Supple Cardiovascular: Regular rate, Regular rhythm Respiratory: No distress, CTA bilaterally, Chest nontender Abdomen: Soft, Nontender Back: Nontender Extremities: Nontender Skin: Normal color, No rash Neurological: Alert, Oriented x3 Psychological: Normal affect Diagnostic/Tx/Re-eval Impressions Chest CTA 10/28/20 14:45 IMPRESSION: Multiple bilateral nonocclusive pulmonary emboli in the pulmonary arteries of the upper lobes bilaterally. Electronically Signed: Amarjit Ko, at 15:15 EST , Service support , 10/28/20 14:45 CTA Chest W/WO Contrast [CT] Stat Laboratory Results 10/28/20 10/28/20 14:05 14:05 WBC 7.1 RBC 4.82 Hgb 14.1 Hct 42.4 MCV 88.0 MCH 29.3 MCHC 33.3 RDW Std Deviation 44.5 H RDW Coeff of Ana Laura 13.9 Plt Count 304 MPV 9.5 Immature Gran % (Auto) 0.300 Neut % (Auto) 57.2 Lymph % (Auto) 33.1 [place] % (Auto) 6.0 Eos % (Auto) 3.0 Baso % (Auto) 0.4 Absolute Neuts (auto) 4.1 Absolute Lymphs (auto) 2.35 Nucleated RBC % 0 Sodium 139 Potassium 3.7 Chloride 106 Carbon Dioxide 27.0 Anion Gap 6 BUN 23 H Creatinine 0.90 Estim Creat Clear Calc 78.15 Est GFR (MDRD) Af Amer 85 Est GFR (MDRD) Non-Af 70 BUN/Creatinine Ratio 25.5 H Glucose 108 H Calcium 9.4 - Medical Decision Making Patient had an EKG and chest x-ray performed before coming to the emergency room. Those were not repeated today. Labs are reviewed. Renal function is normal. CTA of the chest does show multiple nonobstructive PEs. Patient did mention focal pain in her right proximal leg. Venous ultrasound does not reveal a clot to this area. Patient's vital signs are stable and her PEs are nonobstructive. She will be started on Eliquis, first dose given here. ED Disposition - Plan for ED Patient: Disposition: Home or Assisted Living Diagnosis: Pulmonary emboli Instructions: Pulmonary Embolism Prescriptions: Apixaban [Eliquis] 5 mg PO BID #74 tab Transmission Status: Pending to [facility]/pharmacy #[id number] Referrals: Hosea Ovalles MD [Primary Care Provider] - 1-2 Weeks
[2020-10-28 14:14] LABS: Absolute Lymphocyte Count 2.35 X10^3/uL (0.83-4.51); Absolute Neutrophil Count 4.1 X10^3/uL (2.0-7.7); Basophil# 0.03 X10^3/uL; Basophil% 0.4 % (0-1); Eosinophil# 0.21 X10^3/uL; Hematocrit 42.4 % (37-47); Hemoglobin 14.1 g/dL (12.0-15.0); Lymphocyte # 2.35 X10^3/ul (4.0); Lymphocyte % 33.1 % (19-41); Mean Corp Hgb Conc 33.3 g/dL (32-36); Mean Corpuscular Hgb 29.3 pg (27.0-32.0); Mean Platelet Vol. 9.5 fl (6.2-12.0); Monocyte# 0.43 X10^3/uL; NRBC Flagged by Analyzer 0 % (0-5); Neutrophil # 4.07 X10^3/uL (2.7-7.7); Neutrophil % 57.2 % (47-70); Platelet Count 304 K/mm3 (150-450); RBC Distribution Width CV 13.9 % (11.6-14.6); RBC Distribution Width SD 44.5 fl (35.1-43.9); Red Blood Count 4.82 M/mm3 (4.2-5.4); White Blood Count 7.1 K/mm3 (4.4-11.0)
[2020-10-28 14:26] LABS: Anion Gap 6 (5-15); BUN 23 mg/dL (7-18); BUN/Creat Ratio 25.5 RATIO (10-20); Calcium,Total 9.4 mg/dL (8.5-10.1); Chloride 106 mmol/L (98-107); EST Glomerular Filtration Rate 70 mL/min (>60); Est Glom Filt Rate - Afr Amer 85 mL/min (>60); Estimated Creatinine Clearance 78.15 ml/min; Glucose 108 mg/dL (74-106); Potassium 3.7 mmol/L (3.5-5.1); Sodium Level 139 mmol/L (136-145)
--- NOTE | 2020-10-28 14:45 | CT_ITS ---
STUDY: CTA CHEST REASON FOR EXAM: Female, 50 years old. SOB WITH CHEST PAIN. HYPERTENSIVE. R/O PE RADIATION DOSAGE (If Supplied By Facility): CTDIvol = ( 12.66 ) mGy, DLP = ( 575.08 ) mGycm TECHNIQUE: The examination was performed with the intravenous administration of IV 100mL Isovue-370. Post-processing of the angiographic images was performed, with multiplanar reformation and 3D reconstruction. Individualized dose optimization techniques were used for this CT. COMPARISON: None. FINDINGS: Small benign appearing bilateral axillary lymph nodes. Multiple nonocclusive intraluminal filling defects in the branches of the pulmonary arteries in the upper lobes. Normal thoracic aorta and visualized great vessels. There is no demonstrated aortic dissection. Normal heart and pericardium. Normal mediastinum. Normal hilar regions. Normal visualized trachea and bronchi. The lungs are well expanded. Normal pulmonary parenchyma. Normal pleura. Normal chest wall structures. Normal osseous structures. Normal visualized upper abdomen. CT/CTA Chest W/WO Contrast IMPRESSION: Multiple bilateral nonocclusive pulmonary emboli in the pulmonary arteries of the upper lobes bilaterally. Electronically Signed: Amarjit Ko, at 15:15 EST , Service support ,
--- NOTE | 2020-10-28 14:54 | VDLE_ITS ---
Reason For Study: Pain RIGHT GSV is normal. CFV is compressible, spontaneous, phasic, competent and demonstrates normal augmentation. FV is compressible, spontaneous, phasic, competent and demonstrates normal augmentation. POP V is compressible, spontaneous, phasic, competent and demonstrates normal augmentation. T/P Trunk is compressible. PTV is compressible. RT PerV is compressible. Procedure This is a venous duplex using B-mode, color flow and spectral Doppler. Exam performed portable in ED. A preliminary report was called and/or faxed to ED RN. Interpretation Summary There is no evidence of right lower extremity deep vein thrombosis. Right great saphenous vein appears patent and compressible segmentally. Ordering Physician: Dara Lincoln Referring Physician: Hosea Ovalles Performed By: Nicky Mendoza RVT
[2020-10-28] MEDS: APIXABAN 5 MG TABLET 10 MG PO (15:43)
[2020-10-28 15:48] VITALS: BP 141/81; PULSE 102; RESP 19; O2SAT 96
== END 2020-10-28 16:05 | disposition home or self-care (01) ==
PROVIDERS: Emergency Provider Emergency Medicine; PCP Family Medicine
DX: I26.99 Other pulmonary embolism without acute cor pulmonale (principal); R06.02 Shortness of breath; Z86.19 Personal history of other infectious and parasitic diseases
CPT/HCPCS: 71275; 80048; 85025; 85379; 93971; 99285; Q9967; A4216

== ENCOUNTER → 2021-01-15 07:50 | Outpatient (CLI) | payer MEDICAID, SELFPAY ==
--- NOTE | 2021-01-15 13:18 | STRESSREP_ITS ---
Stress Test Report Date: 01/15/2021 Procedure: Pharmacologic stress nuclear imaging study Indications: Shortness of breath Consent: Per the patient Procedure: The patient underwent pharmacologic (Regadenoson) evaluation with a peak heart rate of 111 beats per minute (65% predicted maximal heart rate) and a peak blood pressure of 128/78 mmHg. The baseline ECG demonstrated normal sinus rhythm. EKG during lexiscan infusion revealed no significant ischemic changes. EKG post infusion revealed no significant ischemic changes. [There were no cardiac dysrhythmias pretest, during pharmacologic infusion, or recovery]. [She had chest tightness with Lexiscan infusion which is likely a nonspecific response]. The examination was discontinued secondary to completion of protocol. Impression: 1. Lexiscan stress test test is negative for Lexiscan infusion induced EKG changes of ischemia. 2. Lexiscan stress test test is positive for Lexiscan infusion induced chest tightness which is likely a nonspecific response. 3. Results of the nuclear portion of the test is as below Myocardial perfusion imaging study: Technique: The patient was injected with 14.9 millicuries of technetium 99m Cardiolite and subsequently rest SPECT Cardiolite nuclear imaging was obtained in the horizontal long, vertical long, and short axis views. The patient underwent pharmacologic [Regadenoson 0.4mg] evaluation. Please see above for details. The patient was injected with 44.7 millicuries of technetium 99m Cardiolite and subsequently stress SPECT Cardiolite nuclear imaging was obtained in the horizontal long, vertical long, and short axis views. A gated Cardiolite study at peak stress was obtained. Interpretation: Rest and stress SPECT Cardiolite nuclear imaging status post realignment, normalization, and attenuation correction demonstrate normal myocardial radioisotope uptake at rest. Stress images reveal mild decrease in the radioiso jocelynn uptake in the anterior wall and inferior wall. Mild anterior and inferior ischemia cannot be excluded. Gated images reveal no significant regional wall motion abnormalities. The reported LVEF is greater than 70%. Impression: 1. Mild anterior and inferior ischemia cannot be excluded. 2. Estimated ejection fraction is [greater than 70%]. This note was generated with [employer] software. It may contain incorrect words, spelling, and punctuation that were not noted in checking the note before signing.
== END ==
PROVIDERS: PCP Family Medicine; Referring Provider Family Medicine; Visit Provider Family Medicine
DX: R06.02 Shortness of breath (principal)
CPT/HCPCS: 78452; 93017; A9500; A4216; J2785

== ENCOUNTER 2021-04-23 06:48 | Day surgery (SDC) | payer MEDICAID, SELFPAY ==
[2021-04-09 10:59] VITALS: BMI 55.5
[2021-04-09 12:42] LABS: Absolute Lymphocyte Count 2.16 X10^3/uL (0.83-4.51); Absolute Neutrophil Count 5.5 X10^3/uL (2.0-7.7); Basophil# 0.03 X10^3/uL; Basophil% 0.4 % (0-1); Eosinophil# 0.26 X10^3/uL; Eosinophils% 3.1 % (0-5); Hematocrit 41.9 % (37-47); Hemoglobin 13.7 g/dL (12.0-15.0); Lymphocyte # 2.16 X10^3/ul (0.83-4.51); Lymphocyte % 25.7 % (19-41); Mean Corp Hgb Conc 32.7 g/dL (32-36); Mean Corpuscular Hgb 28.7 pg (27.0-32.0); Mean Corpuscular Volume 87.8 fL (81-99); Mean Platelet Vol. 9.8 fl (6.2-12.0); Monocyte# 0.48 X10^3/uL; Monocyte% 5.7 % (0-10); NRBC Flagged by Analyzer 0 % (0-5); Neutrophil # 5.46 X10^3/uL (2.7-7.7); Neutrophil % 64.9 % (47-70); Platelet Count 324 K/mm3 (150-450); RBC Distribution Width CV 13.5 % (11.6-14.6); RBC Distribution Width SD 43.8 fl (35.1-43.9); Red Blood Count 4.77 M/mm3 (4.2-5.4); White Blood Count 8.4 K/mm3 (4.4-11.0)
[2021-04-09 12:53] LABS: International Normalized Ratio 1.1; Prothrombin Time (Protime)PT. 13.1 SECONDS (11.7-14.9)
[2021-04-09 12:54] LABS: Partial Thromboplast Time 35.5 Seconds (24.1-36.2)
[2021-04-09 13:07] LABS: Anion Gap 8 (5-15); BUN 14 mg/dL (7-18); BUN/Creat Ratio 15.4 RATIO (10-20); Calcium,Total 9.2 mg/dL (8.5-10.1); Chloride 108 mmol/L (98-107); Creatinine, Serum 0.91 mg/dL (0.55-1.02); EST Glomerular Filtration Rate 70 mL/min (>60); Est Glom Filt Rate - Afr Amer 84 mL/min (>60); Glucose 107 mg/dL (74-106); Potassium 4.1 mmol/L (3.5-5.1); Sodium Level 139 mmol/L (136-145)
[2021-04-22 08:23] VITALS: BMI 55.5
--- NOTE | 2021-04-23 08:41 | CL.D_ITS ---
Patient Name: WILLEM DE LA TORRE Study Date: 04/23/2021 Performing: Edwin Block MD Ht: 68.89 inches 175 cm : 1970 Wt: 376.99 lbs 171 kg Age: 50 Gender: female BSA: 2.7 PROCEDURE(S) PERFORMED FH22-NKV/COR/LV CLINICAL PROFILE AND INDICATIONS Indications: Suspected CAD Heart Failure: None Stress/Imaging Date: 01/24/21 CAD Presentations: Symptom unlikely to be ischemic. CONCLUSIONS Normal coronary arteries Normal LV size, wall motion,and systolic function RECOMMENDATIONS Medical therapy DESCRIPTION OF PROCEDURE The patient arrived to the procedure lab. The risks and benefits of the procedure as well as a full d escription of our services here and current unavailability of surgical backup were fully explained to the patient and/or their significant other prior to the catheterization. The Timeout was completed, verifying the correct patient and procedure. The patient's procedural site was prepped and draped in the usual fashion. Local anesthetic was given subcutaneously to right radial region with Lidocaine 2% . Using a modified Seldinger technique, arterial access was obtained via the right radial artery, a 6 Fr sheath was inserted. Right Coronary Artery selective angiography was performed in multiple views using a 5 Fr. 4.0 Eddy catheter. Left Coronary Artery selective angiography was performed in multipl e views using a 5 Fr. 4.0 Eddy catheter. Left Ventriculography was performed in GRAY projection using a 5 Fr. Pigtail catheter. LV to AO pullback pressures were then recorded.The arterial sheath was pulled and a TR Band was applied for hemostasis CORONARY ANGIOGRAPHY DOMINANCE: Co- Dominant LEFT HEART ASSESSMENT Left Ventricular Ejection Fraction: by LV Gram 60 % Normal LV wall motion Normal Left Ventricular systolic function LEFT MAIN: Angiographically normal LEFT ANTERIOR DESCENDING ARTERY: Angiographically normal CIRCUMFLEX ARTERY: Angiographically normal RIGHT CORONARY ARTERY: Angiographically normal COMPLICATIONS No Complications PROCEDURE MEDICATIONS Versed 1 mg IV Versed 1 mg IV Versed 1 mg IV Fentanyl 25 mcg IV Oxygen: 2 L/min via nasal cannula Oxygen: 3 L/min via nasal cannula Heparin given IA 04/23/2021 08:09:48 Verapamil 2.5mg, Ntg 100mcgs, 3000 units of Heparin given IA 04/23/2021 08:09:48 SUMMARY OF HEMODYNAMIC DATA Time AIR REST ECG 07:06:33 AO 104/71 (84) SA 08:12:44 LV 111/11, 16 08:18:29 LV 106/14, 17 08:18:36 LV 109/14, 19 08:19:22 LV 108/16, 20 08:19:28 LVp 112/19, 26 08:19:34 AOp 115/77 (93) 08:19:39 RM AIR REST 08:28:01 Signed By Edwin Block MD On 04/23/2021 08:41:17 Edwin Block MD
== END 2021-04-23 10:15 | disposition home or self-care (01) ==
LOC: CLSP 06:48
PROVIDERS: Physician Assistant Medical; PCP Family Medicine; Referring Provider Internal Medicine Cardiovascular Disease; Visit Provider Internal Medicine Cardiovascular Disease
DX: R94.39 Abnormal result of other cardiovascular function study (principal); R06.00 Dyspnea, unspecified; I10 Essential (primary) hypertension; G47.33 Obstructive sleep apnea (adult) (pediatric); J45.909 Unspecified asthma, uncomplicated; M19.90 Unspecified osteoarthritis, unspecified site; G89.29 Other chronic pain; M54.9 Dorsalgia, unspecified; M54.2 Cervicalgia; M79.7 Fibromyalgia; K21.9 Gastro-esophageal reflux disease without esophagitis; K58.9 Irritable bowel syndrome, unspecified; E66.01 Morbid (severe) obesity due to excess calories; E28.2 Polycystic ovarian syndrome; Z79.899 Other long term (current) drug therapy; Z86.16 Personal history of COVID-19; Z86.711 Personal history of pulmonary embolism
CPT/HCPCS: 36415; 80048; 85025; 85610; 85730; 93458; 99152; 99153; J7040; Q9967; C1769; C1894